=== PATIENT | female | born 1980 | race Asian ===

== ENCOUNTER 2017-07-01 22:21 | Emergency (ER) | payer OTHER ==
[2017-07-01 22:48] VITALS: BP 115/71; PULSE 77; TEMP 98.4; BMI 23.0
--- NOTE | 2017-07-02 00:06 | PDOC ---
History of Present Illness - General Chief Complaint: Vaginal Bleeding Stated Complaint: VAGINAL BLEEDING/12 WKS Time Seen by Provider: 07/01/17 23:01 - History of Present Illness Initial Comments: 07/02/17 00:02 CHIEF COMPLAINT: vag bleeding, 11 wks preg HISTORY OF PRESENT ILLNESS: 37 yo F with recent D&C (03/03) no PMH presents to ED with vaginal bleeding. Patient reports that she has had bleeding since she was 7 weeks . Recent US showed a subchorionic hematoma but she states today's bleeding was worse than it has been previously and she had two full pads between 7-9 pm. Patient denies any other unusual discharge. She denies any lightheadedness, dizziness, palpitations, weakness. OB: Huseyin @ [facility] Patient is unsure when her last LMP is; she states that she found out she was again shortly after her D&C. No recent travel or sick contacts. PAST MEDICAL HISTORY: Denies past medical history FAMILY HISTORY: Denies SOCIAL HISTORY: Occupation: Nurse at [employer]. Denies tobacco, alcohol , illicit drug use. SURGICAL HISTORY: Denies ALLERGIES: No known drug allergies REVIEW OF SYSTEMS General/Constitutional: Denies fever or chills. Denies weakness. HEENT: Denies change in vision. Denies ear pain or discharge. Denies sore throat. Cardiovascular: Denies chest pain or shortness of breath. Respiratory: Denies cough, wheezing, or hemoptysis. Gastrointestinal: Denies nausea, vomiting, diarrhea or constipation. Denies rectal bleeding. Genitourinary: Vaginal bleeding "for weeks." Denies dysuria, frequency, or change in urination. Musculoskeletal: Denies joint or muscle swelling or pain. Denies neck or back pain. Skin and breasts: Denies rash or easy bruising. Neurologic: Denies headache, vertigo, loss of consciousness, or loss of sensation. PHYSICAL EXAM General Appearance: Well-appearing, appropriately dressed. No apparent distress. HEENT: EOMI, PERRLA, normal ENT inspection, normal voice, TMs normal, pharynx normal. No conjunctival pallor. No photophobia, scleral icterus. Respiratory/Chest: Lungs CTAB. Cardiovascular: RRR. S1, S2. Vascular Pulses: Dorsalis-Pedis (R): 2+, Dorsalis-Pedis (L): 2+ Gastrointestinal/Abdominal: Normal bowel sounds. Abdomen soft, non-distended. No tenderness or rebound tenderness. No organomegaly, pulsatile mass, guarding , hernia, hepatomegaly, splenomegaly. Pelvic: External genitalia normal without lesions. Vaginal vault with copious bloody discharge. No cervical motion tenderness. Cervical os open with bloody discharge. Uterus is nontender and normal in size. Adnexa are nontender and without masses. Musculoskeletal/Extremities: Normal inspection. FROM of all extremities, normal capillary refill. Pelvis Stable. No CVA tenderness. No tenderness to extremities, pedal edema, swelling, erythema or deformity. Integumentary: Appropriate color, dry, warm. No cyanosis, erythema, jaundice or rash Neurologic: electrocardiograph technician II-XII intact. Fully oriented, alert. Appropriate mood/affect. Motor strength 5/5. No appreciable EOM palsy, facial droop or sensory deficit. 07/02/17 01:01 Past History - Past Medical History Allergies/Adverse Reactions: Allergies Allergy/AdvReac Type Severity Reaction Status Date / Time No Known Allergies Allergy Verified 07/01/17 22:32 Other medical history: Pt denies - Psycho/Social/Smoking Cessation Hx Suicidal Ideation: No Smoking History: Never smoked Information on smoking cessation initiated: No Hx Alcohol Use: No Drug/Substance Use Hx: No Substance Use Type: None *Physical Exam - Vital Signs Last Vital Signs Temp Pulse Resp BP Pulse Ox 98.4 F 77 18 115/71 99 07/01/17 22:33 07/01/17 22:33 07/01/17 22:33 07/01/17 22:33 07/01/17 22:33 ED Treatment Course - LABORATORY CBC & Chemistry Diagram: 07/02/17 00:20 07/02/17 00:20 Medical Decision Making - Medical Decision Making 07/02/17 03:01 37 yo F with recent D&C (03/03) no PMH presents to ED with vaginal bleeding. -CBC, CMP, PT/INR, T&S Labs unremarkable. Patient blood type is O+, no indication for Rhogam. TVUS results: FINDINGS: There is a single live intrauterine . Estimated gestational age is 11 weeks 6 days. heart rate is 154 beats per minute. There is a subchorionic hemorrhage noted. Followup recommended. Cervix is grossly closed. No cul-de-sac effusion. There is a 3.2 cm right ovarian cyst noted, likely corpus luteum cyst. Read by: Soto Fernandez MD Advised patient to f/u with OB as planned and of signs and symptoms for return to ER; patient verbalized understanding and agrees to plan. *DC/Admit/Observation/Transfer Diagnosis at time of Disposition: Vaginal bleeding before 22 weeks gestation - Discharge Dispostion Disposition: HOME Condition at time of disposition: Stable Admit: No - Referrals Referrals: Vlad Becker MD [Primary Care Provider] - - Patient Instructions Printed Discharge Instructions: DI for Vaginal Bleeding During Additional Instructions: Please follow up with your lpn instructor within the next two days. If you experience any severe bleeding (more than one soaked pad an hour), lightheadedness, dizziness, palpitations, abdominal pain, or any new or worsening symptoms, please return to the ER.
[2017-07-02 00:26] LABS: BASOPHIL 0.6 % (0-2.0); EOSINOPHIL 2.5 % (0-4.5); MCH 27.2 pg (25.7-33.7); MCHC 32.9 g/dl (32.0-36.0); MEAN CELL VOLUME 82.6 fl (80-96); MEAN PLT VOLUME 7.2 fl (7.5-11.1); NEUTROPHILS 68.4 % (42.8-82.8); PLATELET COUNT 300 K/MM3 (134-434); RDW 16.2 % (11.6-15.6); WHITE BLOOD COUNT 6.8 K/mm3 (4.0-10.0)
[2017-07-02 00:30] LABS: URINE APPEARANCE CLEAR; URINE BILIRUBIN NEGATIVE (NEGATIVE); URINE BLOOD 3+ (NEGATIVE); URINE COLOR LTYELLOW; URINE GLUCOSE (UA) NEGATIVE (NEGATIVE); URINE KETONE NEGATIVE (NEGATIVE); URINE LEUK ESTERASE NEGATIVE (NEGATIVE); URINE NITRITE NEGATIVE (NEGATIVE); URINE PROTEIN NEGATIVE (NEGATIVE); URINE UROBILINOGEN NEGATIVE mg/dL (0.2-1.0)
[2017-07-02 00:37] LABS: URINE BACTERIA RARE /hpf (NONE SEEN); URINE MUCUS RARE; URINE RBC 3 /hpf (0-3); URINE WBC <1 /hpf (3-5)
[2017-07-02 00:46] LABS: INR 1.04 (0.82-1.09); PROTHROMBIN TIME (PATIENT) 11.4 SEC (9.98-11.88)
[2017-07-02 00:53] LABS: ALBUMIN 3.5 g/dl (3.4-5.0); ANION GAP 11 (8-16); BILIRUBIN,TOTAL 0.3 mg/dL (0.2-1.0); CALCIUM 8.7 mg/dL (8.5-10.1); CO2 23 mmol/L (21-32); CREATININE 0.4 mg/dL (0.55-1.02); GLUCOSE,RANDOM 83 mg/dL (74-106); SGOT/AST 13 U/L (15-37); SGPT/ALT 20 U/L (12-78); TOT PROT 7.1 g/dl (6.4-8.2)
[2017-07-02 01:08] LABS: ALK PHOS 48 U/L (45-117)
== END 2017-07-02 03:13 | disposition home or self-care (01) ==
LOC: JER 22:21
DX: O20.9 Hemorrhage in early pregnancy, unspecified (principal); Z3A.12 12 weeks gestation of pregnancy
CPT/HCPCS: 36415; 76801-TC; 80053; 81003; 81015; 84702; 85025; 85610; 86850; 86900; 86901; 87086; 99281-25